=== PATIENT | female | born 1985 | race Caucasian/White ===

== ENCOUNTER 2022-05-08 22:37 | Inpatient (IN) | payer OTHER ==
[~2022-05-08] VITALS: Ht 167.6 cm; Wt 66.2 kg
[2022-05-08 23:30] LABS: MEAN CORPUSCULAR HEMOGLOBIN 32.6 uug (24.7-32.8); MEAN CORPUSCULAR VOLUME 95.1 fL (75.5-95.3); PLATELET COUNT (AUTO) 183 K/uL (179-408)
[2022-05-08 23:38] LABS: CARBON DIOXIDE 26 mmol/L (21-32); CHLORIDE 106 mmol/L (98-107); CREATININE 0.6 mg/dL (0.6-1.3); GLUCOSE 92 mg/dL (74-106); POTASSIUM 3.8 mmol/L (3.5-5.1); UREA NITROGEN, BLOOD 19 mg/dL (7-18)
[2022-05-08 23:50] LABS: ALANINE AMINOTRANSFERASE 14 U/L (14-59); ALKALINE PHOSPHATASE 30 U/L (50-136); ASPARTATE AMINOTRANSFERASE 14 U/L (15-37); BILIRUBIN,DIRECT 0.2 mg/dL (0.0-0.2); BILIRUBIN,TOTAL 0.9 mg/dL (0.2-1.0); TOTAL PROTEIN, SERUM 7.2 g/dL (6.4-8.2)
[2022-05-09] MEDS ORDERED: IV NS 1000 ML 1,000 ML IV ONE (01:00)
--- NOTE | 2022-05-09 01:18 | NUR ---
called [facility] for panel call. awaiting for Qing Mccain NP hospitalist to call back
--- NOTE | 2022-05-09 01:30 | NUR ---
patient has been accepted by Qing Mccain NP
--- NOTE | 2022-05-09 01:42 | NUR ---
patient is a/ox4, NAD noted. patient is ambulatory with steady gait
[2022-05-09 02:55] LABS: *URINE HCG, QUAL NEGATIVE (NEGATIVE)
--- NOTE | 2022-05-09 03:01 | NUR ---
report given to Noemy HOWELL - TELE
--- NOTE | 2022-05-09 03:32 | NUR ---
Pt. 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
--- NOTE | 2022-05-09 04:04 | NUR ---
Admitted 36 yr old female under Adán [employer]OP[employer] TE[employer]ER. Complained of palpitations, chest pressure, numbness on bilateral hands for a few days now. SR on Tele. IV on R AC 20 g intact and patent. Ambulatory with steady gait. No medical history noted. Routine admission done. Oriented pt to hospital room. All needs attended. Will continue to monitor.
[2022-05-09] MEDS ORDERED: MAGNESIUM HYDROXIDE 30 ML LIQUID UDC PO PRN (05:45)
[2022-05-09] MEDS ORDERED: ZOLPIDEM 5 MG TABLET PO PRN (05:45)
[2022-05-09] MEDS ORDERED: REMEDY ESSENTIAL ZINC PASTE 113 GM TP PRN (05:45)
[2022-05-09] MEDS ORDERED: ONDANSETRON 4 MG/2 ML VIAL IV PRN (05:45)
[2022-05-09] MEDS ORDERED: ACETAMINOPHEN 325 MG TABLET PO PRN (05:45)
[2022-05-09] MEDS ORDERED: LEVOTHYROXINE SODIUM 50 MCG TABLET PO SCH (07:00)
[2022-05-09 07:25] LABS: MEAN CORPUSCULAR HEMOGLOBIN 32.5 uug (24.7-32.8); MEAN CORPUSCULAR VOLUME 94.9 fL (75.5-95.3); PLATELET COUNT (AUTO) 181 K/uL (179-408)
[2022-05-09 07:44] LABS: CREATININE 0.6 mg/dL (0.6-1.3); POTASSIUM 3.8 mmol/L (3.5-5.1)
--- NOTE | 2022-05-09 08:30 | NUR ---
Received pt. awake lying in bed, with IV on R AC intact and patent. Pt. on regular diet, NSR on tele monitor at 97 bpm. Still complaining of mild chest pressure. Observed accordingly. Keep pt. rested.
--- NOTE | 2022-05-09 09:00 | NUR ---
Seen and examined by Dr. Cohen, with orders made continue care plan, follow up echo if normal result can be discharge.
[2022-05-09 11:00] VITALS: BP 103/52
--- NOTE | 2022-05-09 13:59 | NUR ---
Seen patient in bed, no change from morning assessment. Denies any pain and discomfort. SR on tele monitor. Observed accordingly
--- NOTE | 2022-05-09 15:26 | NUR ---
Patient complaining of lower abdominal pain. Tylenol 650mg tab PO given as needed. Keep pt. monitored.
[2022-05-09 16:00] VITALS: BP 113/62
--- NOTE | 2022-05-09 17:35 | NUR ---
2DECHO DONE RESULTS NOTED BT DR GILMORE., ALSO MADE AWARE OF HR 140 NON-SUSTAIN WHILE WALKING TO THE BATHROOM BUT DENIES SOB OR CHEST PAIN
--- NOTE | 2022-05-09 18:48 | NUR ---
DISCHARGED HOME STABLE ACCOMPANIED BY FAMILY, DISCHARGE INSTRUCTION GIVEN, FOLLOW-UP WITH PRIMARY DOCTOR
[2022-05-10] MEDS ORDERED: LEVOTHYROXINE SODIUM 25 MCG TABLET PO SCH (07:00)
== END 2022-05-09 18:50 | disposition home or self-care (01) | DRG 422 ==
LOC: ER 22:37 → TELE3 05-09 01:10
PROVIDERS: ADMIT Internal Medicine; ATTEND Internal Medicine
DX: E86.0 Dehydration (principal); E03.9 Hypothyroidism, unspecified; F41.9 Anxiety disorder, unspecified; R00.2 Palpitations; Z86.16 Personal history of COVID-19; F43.9 Reaction to severe stress, unspecified; R00.0 Tachycardia, unspecified; Z20.822 Contact with and (suspected) exposure to COVID-19
CPT/HCPCS: 36415; 71045; 83735; 84100; 84443; 84484; 84703; 85025; 93005; 93307; G0378; J7040